=== PATIENT | female | born 1965 | race Caucasian/White ===

== ENCOUNTER 2018-12-20 11:52 | Emergency (ER) | payer OTHER ==
[~2018-12-20] VITALS: Ht 162.6 cm; Wt 59.0 kg
[2018-12-20 12:27] LABS: ABSOLUTE BASOPHILS 0.1 thou/uL (0.0-0.2); ABSOLUTE EOSINOPHILS 0.1 thou/uL (0.0-0.7); ABSOLUTE LYMPHOCYTES 1.5 thou/uL (0.8-5.3); ABSOLUTE MONOCYTES 0.8 thou/uL (0.0-1.2); ABSOLUTE NEUTROPHILS 4.4 thou/uL (1.6-8.1); BASOPHILS 0.8 %; EOSINOPHILS 2.1 %; HEMATOCRIT 40.1 % (37.0-47.0); HEMOGLOBIN 13.8 gm/dL (12.0-15.0); MCH 32.8 pg (26.0-34.0); MCHC 34.3 g/dL (28.0-37.0); MCV 95.6 fL (80.0-100.0); MONOCYTES 11.1 %; MPV 7.6 fl. (7.2-11.1); NUCLEATED RBCS 0 /100WBC; PLATELET COUNT* 257 thou/uL (150-400); RBC 4.19 mil/uL (4.20-5.00); RDW-CV 13.6 % (10.5-14.5); WBC 6.9 thou/uL (4.0-11.0)
[2018-12-20 12:36] LABS: CALCIUM 9.2 mg/dL (8.5-10.1); CREATININE 1.2 mg/dL (0.6-1.3); POTASSIUM 3.3 mmol/L (3.5-5.1)
[2018-12-20 12:37] LABS: PROTIME 10.2 Seconds (9.20-11.50)
[2018-12-20 12:51] LABS: TOTAL BILIRUBIN 0.4 mg/dL (<0.1-1.0); TOTAL PROTEIN 8.1 g/dL (6.4-8.2)
[2018-12-20] MEDS ORDERED: LISINOPRIL-HCT1 EACH PO (13:10)
[2018-12-20 13:34] VITALS: BP 178/127
--- NOTE | 2018-12-21 14:32 | EKG ---
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 : 1965 Requested By: Veronica Mcmullen Order Number: [id number] MD: Wilfred Chávez Measurements Intervals [place] Rate: 89 P: 40 HI: 149 QRS: 4 QRSD: 98 T: 27 QT: 385 QTc: 469 Interpretive Statements Sinus rhythm Ventricular premature complex Minimal ST depression, anterolateral leads No previous ECG available for comparison Electronically Signed On 12-21-2018 14:32:25 [employer] SALES MANAGER by Wilfred Chávez [email or web address] <ELECTRONICALLY SIGNED> By: Wilfred Chávez MD, FACC 12/21/18 1432 1241 1241 Wilfred Chávez MD, FACC /EPI
== END 2018-12-20 13:49 | disposition home or self-care (01) ==
LOC: M.ERS 11:52
PROVIDERS: Personal Emergency Response Attendant
DX: I16.0 Hypertensive urgency (principal); H61.21 Impacted cerumen, right ear; I10 Essential (primary) hypertension; Z90.710 Acquired absence of both cervix and uterus; Z90.49 Acquired absence of other specified parts of digestive tract; Z77.22 Contact with and (suspected) exposure to environmental tobacco smoke (acute) (chronic)